=== PATIENT | male | born 2000 | race Caucasian/White ===

== ENCOUNTER 2023-05-17 14:10 | Emergency (ER) | payer MEDICAID ==
[~2023-05-17] VITALS: Ht 172.7 cm; Wt 69.4 kg
[2023-05-17 14:52] VITALS: TEMP 98.7
[2023-05-17 16:13] VITALS: BP 112/86; PULSE 99; RESP 17; O2SAT 98
== END 2023-05-17 16:24 | disposition home or self-care (01) ==
LOC: ER 14:11
DX: S62.392A Other fracture of third metacarpal bone, right hand, initial encounter for closed fracture (principal); Y08.89XA Assault by other specified means, initial encounter; Y93.89 Activity, other specified; Y92.89 Other specified places as the place of occurrence of the external cause; Y99.8 Other external cause status
CPT/HCPCS: 29125; 73130; 99283; A6446; A6449